=== PATIENT | female | born 1995 | race Caucasian/White ===

== ENCOUNTER 2017-02-09 15:14 | Emergency (ER) | payer BC ==
--- OUTSIDE RECORDS SUMMARY | 2017-02-09 16:38 | XMS REPORT | Continuity of Care Document ---
:1995 Author Organization [facility] ([facility]) Address [address] [place] [address] Phone [phone] Care Team Providers Name Role Phone Moreno Ptots Primary Care Provider [phone] Source Comments This disclosure is being made pursuant to the Care Everywhere program, applicable federal and state laws, and may not contain all informaitonavailable regarding this patient.[facility] ([facility]) Active Allergies and Adverse Reactions Allergen Noted Date Severity Reactions Comments Codeine 06/10/2016 OTHER Poison Carmen Extract 06/10/2016 Angioedema Current Medications Prescription Sig. Disp. Refills Start Date End Date Status cetirizine 10 mg tablet Take 10 mg by Active mouth at bedtime. risperiDONE 0.5 mg Take 0.5 mg by Active tablet mouth at bedtime. acetaminophen 325 mg Take 2 tablets 70 tablet 2 12/28/2016 Active tablet (650 mg total) by mouth every 6 hours. oxyCODONE 5 mg Take 1 tablet (5 40 tablet 0 12/28/2016 Active immediate release mg total) by tablet mouth every 6 hours as needed for Pain. Active Problems Problem Noted Date Sialadenitis 06/12/2016 Sialolithiasis of submandibular gland 06/10/2016 Most Recent Encounters Date Type Specialty Providers Description 12/31/2016 Office Visit Otolaryngology Sami Torrez Dx: Sialolithiasis MD Esteban of submandibular gland (Primary Dx) 12/29/2016 Nurse Triage General Care Jennifer Galvez Chief Comp: IP Inpatient - Adult Nelson dat instructor Follow-up Call 12/28/2016 Pharmacy Visit 12/27/2016 [facility] Sami Torrez Dx: Sialolithiasis - Encounter Inpatient - Adult MD Esteban of submandibular 12/28/2016 gland (Primary Dx) 12/27/2016 Surgery General Surgery Sami Torrez LEFT SIALENDOSCOPY T, MD SUBMANDIBULAR DISSECTION AND EXCISION DUCT DIALATION 12/06/2016 Hospital Anesthesiology Chief Comp: Patient Encounter Reported Reason For Visit 12/06/2016 Office Visit Otolaryngology Sami Torrez Dx: Sialolithiasis MD Esteban of submandibular gland (Primary Dx) 12/06/2016 [facility] Radiology Owen Zamarripa Dx: Sialadenitis Encounter MD Manuel Oconnor Joan E, MD 12/04/2016 Anesthesia Event General Surgery Junie Cheek CRNA Immunizations Name Dates Previously Given Next Due DTP 02/09/1994,1993,1993 DTaP, unspecified 07/22/1997,09/12/1996 Hepatitis B, unspecified 1993,1993,1993 Hib, unspecified 08/05/1994,02/09/1994,1993,1993 MMR 07/22/1997,08/05/1994 Polio, unspecified 07/22/1997,02/09/1994,1993,1993 Varicella 09/12/1996 Social History Tobacco Use Types Packs/Day Years Used Date Light Tobacco Smoker 0.25 Smokeless Tobacco: Never Used Tobacco Cessation:Counseling Given: Yes Comments:occasional cigarette Alcohol Use Drinks/Week oz/Week Comments Yes occasional Last Filed Vital Signs Vital Sign Reading Time Taken Blood Pressure 103/68 12/31/2016 11:13 AM TOOL DESIGNER Pulse 62 12/31/2016 11:13 AM TOOL DESIGNER Temperature 35.9 C (96.6 F) 12/31/2016 11:13 AM TOOL DESIGNER Respiratory Rate 16 12/28/2016 9:40 AM TOOL DESIGNER Height 1.702 m (5' 7.01") 12/31/2016 11:13 AM TOOL DESIGNER Weight 66.5 kg (146 lb 9.7 oz) 12/31/2016 11:13 AM TOOL DESIGNER Body Mass Index 22.96 12/31/2016 11:13 AM TOOL DESIGNER Oxygen Saturation 96% 12/28/2016 7:41 AM TOOL DESIGNER Plan of Care Date Type Specialty Providers Description 03/03/2017 Appointment Otolaryngology Sami Torrez MD Chief Comp: Patient [address] [place] [address] Visit [phone] (Fax) Health Maintenance Due Date Last Done Comments Hepatitis B Vaccine (4 of 4 1993 1993, - 4 Dose Series) 1993, 1993 Varicella Vaccine (2 of 2 - 08/19/1997 09/12/1996 2 Dose Childhood Series) HPV Vaccine (1 of 3 - 2004 Female/Unknown 3 Dose Series) Tdap Vaccine 2004 Cervical Cancer Screening 2011 Lipid Disorder Screening 2011 Td Vaccine 2011 07/22/1997, Additional history exists 09/12/1996, 02/09/1994 Pneumococcal Vaccine (1 of 1 2012 - PPSV23) Influenza Vaccine: Seasonal 06/28/2016 (#1) MMR Vaccine Completed 07/22/1997, 08/05/1994 Procedures from Last 3 Months Procedure Name Priority Date/Time Associated Diagnosis Comments ABSTRACTED BY BILLING Routine 12/29/2016 5:43 Sialolithiasis of Results for this STAFF PM TOOL DESIGNER submandibular gland procedure are in the results section. LEFT SIALENDOSCOPY 12/27/2016 10:13 Sialolithiasis of SUBMANDIBULAR AM TOOL DESIGNER submandibular gland DISSECTION AND EXCISION DUCT DIALATION Case Notes sialendoscopy with use of laser and sialo balloon with possible submandibular gland removal Results from Last 3 Months [facility] OR CASE (12/29/2016 5:43 PM) Narrative Sami Torrez MD 12/29/20165:43 PM Post-Op Procedure Note Operation/Procedure: Procedure: Left submandibular sialendoscopy with ductal dilation in effort (unsuccessful) to access the secondary branching system where stone present Left submandibular gland resection General Information: Date: 12/27/16 Time: 1013 Location: MAIN OR OR Room: MAIN OR Service: Otolaryngology Log ID: [id number] Surgeon: Surgeon(s) and Role: * Sami Torrez MD - Primary * Kaushal Cunningham MD - Resident - Assisting Staff Information: Scrub Nurse: Nancy Osuna, SANDRA; Coco Alcantara RN Circulating Nurse: Elisabet Weaver RN; Vadim Wiggins RN; Fouzia Conde RN Anesthesia: General Findings: Duct readily cannulated but stone located proximal to hilum (in secondary branching), able to visualize partly but unable to access despite efforts to dilate Left open submandibular gland resection performed Blood Loss: Minimal Tourniquet Time: * No tourniquets in log * Implants: * No implants in log * Specimens: ID Type Source Tests Collected by Time Destination 1 : left submandibular gland Surgical Pathology Surgical Pathology Specimen SURGICAL PATHOLOGY EXAM Sami Torrez MD 12/27/2016 1233 Complications: None, patient tolerated the procedure well Condition: Stable Operative Report Completion Indications: 21 year-old female with a left submandibular duct stone Procedure Details: Informed consent was reviewed with the patient, and the patient was brought back to the main operating room and laid supine on the operating table. A preinduction time-out was completed. General anesthesia was induced and the patient was orally intubated without difficulty. The bed was rotated 180 degrees from Anesthesia. A multidisciplinary time-out was performed. A throat pack was placed and the oral cavity was prepped with dilute Betadine and the face and neck and endotracheal tube prepped with betadine and draped in routine sterile fashion. The operating microscope was used to examine the left submandibular duct.A 0.015 guidewire was inserted atraumatically into the papilla and advanced.Marchal dilators were advanced over the guidewire to provide additional dilation. The KolCAPPTURE 5-Danish salivary access dilator was unable to be placed, but the diagnostic 0.8 sialoendoscope was inserted without difficulty.The duct was examined and the stone was identified at the hilum although only a limited view was able to be obtained.A 3 mm Portr sialoballoon was then inserted into the papilla and inflated to 18 atmospheres to dilate the papilla. This allowed for concurrent placement of the sialoendoscope and sialoballoon into the submandibular duct.The duct was dilated multiple times with the sialoballoon inflated to 18 atmospheres, but an improved view of the stone that would allow endoscopic removal was unable to be obtained.As per the pre-operative discussion with the patient, the decision was made to proceed with open submandibular gland resection. An incision was planned approximately 2 fingerbreadths below the angle of the left jaw and then infiltrated with 2.5 cc of 1:100,000 epinephrine. Using a #15 blade, an incision was made down though the platysma. The Yao Diallo facial stimulator was used to confirm the superior elevation of the marginal mandibular branch of the facial nerve. Using blunt dissection with hemostats, the inferior border of the left submandibular gland was identified.Dissection was then continued superiorly with care to remain directly on the gland.The facial vessels lateral to the gland were identified and preserved but limiting vessel ligation to the branches of the facial artery coursing into the submandibular gland.The mylohyoid muscle and retracted this cranially to allow for visualization of the anterior aspect of the gland, as well as the lingual nerve and submandibular duct. Hemoclips were placed on the submandibular ganglion and on the submandibular duct immediately below the point were it crossed with the lingual nerve.The ganglion and submandibular duct were then resected immediately below the hemoclips and the gland was removed.The stone was confirmed to be present in the specimen which was then passed off for pathology. The wound bed was irrigated with sterile saline. Hemostasis was achieved with bipolar cautery.A quarter-inch [place] drain was placed into the wound and secured with a 5-0 nylon at the posterior aspect of the incision. The platysma was closed with 3-0 Vicryl interrupted sutures. Approximation of the deep dermis was performed with interrupted 3-0 Vicryl.The skin edges were approximated with a running 5-0 nylon suture. Bacitracin was applied, followed by fluffs and burn netting.The oral cavity was suctioned from final irrigations and debris. The throat pack was removed. The patient was turned back to Anesthesia for emergence and extubation and escorted to the PACU in stable condition. Attending Attestation: Op Note Preop Dx: Left submandibular sialolithiasis and sialadenitis Postop D: Same Procedure: Left submandibular sialendoscopy with ductal dilation in effort (unsuccessful) to access the secondary branching system where stone present Left submandibular gland resection Surgeon: Lore Asst: Marisa Anesthesia: General OETT (glide scope) Findings: duct readily cannulated but stone located proximal to hilum (in secondary branching) able to visualize partly but unable to access despite efforts to dilate (3 mm COOK sialoballoon) back to stone Leading to gland removal with stone indentified intraglandular Dr. Torrez was present for and participated in all the above. [facility] MD Dr. Lore Chu was present for and participated in all the above. [facility] SURGICAL PATHOLOGY EXAM (12/27/2016 12:33 PM) Component Value Range Case Report Surgical Pathology Case: [id number] Authorizing Provider:Sami Torrez MD Collected: 12/27/2016 12:33 PM Ordering Location: Main OR Received:12/27/2016 12:56 PM Pathologist: Rob Irving MD Specimen:Salivary gland, left submandibular gland Diagnosis Submandibular gland, left, excision: Benign salivary gland tissue with no diagnostic abnormality. I have personally reviewed this case and edited the report as necessary. Gross Description Received fresh in a container labeled with Gabriela Yulia, hospital number, and "left submandibular gland" are two santiago-pink, lobular, ragged, partially encapsuled soft tissue fragments grossly consist ent with salivary gland up to 1.2 and 3.9 cm in greatest dimension.Cut surfaces are santiago-pink, solid, glistening, homogenous and lobular without discrete lesions, masses, or stones.A dilated du ct is not appreciated.Galvanizing Pot Runner sections are submitted in A1. LRL/rls Microscopic Description Microscopic examination performed and supports the diagnosis. Performed by: Jose Zuniga MD, R1 Specimen Surgical Pathology - Salivary gland URINE , POINT OF CARE (12/27/2016) Component Value Range POC URINE NegativeComment:HCG:LOT 99860 POC FINANCIAL INSTITUTION PRESIDENT Satisfactory FL SIALOGRAM COMPLETE (12/06/2016 10:52 AM) Impressions Impression: 1. Approximately 4 mm sialolith demonstrated at the hilum of the left submandibular gland. 2. No visualized stricture or sialosis. Narrative Procedure: FL SIALOGRAM COMPLETE Indication: sialogram - left submandibular duct cannulation, dilation radio contrast insufflation consent completed in clinic by and scanned into medical record Technique: Dr. Torrez was present and performed cannulation of the left submandibular duct opening. After successful cannulation was achieved, a 10 cc syringe with Isovue 370 contrast agent was connected to the cannula and instilled into the duct under fluoroscopic monitoring. A total of 2.5 cc of contrast agent was utilized. After adequate duct opacification was achieved, AP and lateral spot films were obtained. The cannula was then removed and duct was allowed to empty following oral administration lemon juice to patient. Post void lateral image was then obtained. Fluoro Time: 34 seconds Radiation Dose: 180 cGy-cm2 Findings: Adequate opacification of the left submandibular duct and branches is achieved. An approximately 4 mm ovoid density was identified near the hilum of the left submandibular gland, best visualized on the lateral radiograph. An additional 1.4 mm rounded filling defect was seen nondependently in the midportion of the duct, however, this is thought to reflect a small air bubble. No stricture, sialectasis, fistula, or extravasation is identified. There is a normal pattern of intraglandular arborization. Post void film shows adequate emptying with no contrast remaining within the gland or duct system. Procedure Note Abhijit, Incoming Imaging Results - Tue Dec 07, 2016 3:41 PM TOOL DESIGNER Procedure: FL SIALOGRAM COMPLETE Indication: sialogram - left submandibular duct cannulation, dilation radio contrast insufflation consent completed in clinic by and scanned into medical record Technique: Dr. Torrez was present and performed cannulation of the left submandibular duct opening. After successful cannulation was achieved, a 10 cc syringe with Isovue 370 contrast agent was connected to the cannula and instilled into the duct under fluoroscopic monitoring. A total of 2.5 cc of contrast agent was utilized. After adequate duct opacification was achieved, AP and lateral spot films were obtained. The cannula was then removed and duct was allowed to empty following oral administration lemon juice to patient. Post void lateral image was then obtained. Fluoro Time: 34 seconds Radiation Dose: 180 cGy-cm2 Findings: Adequate opacification of the left submandibular duct and branches is achieved. An approximately 4 mm ovoid density was identified near the hilum of the left submandibular gland, best visualized on the lateral radiograph. An additional 1.4 mm rounded filling defect was seen nondependently in the midportion of the duct, however, this is thought to reflect a small air bubble. No stricture, sialectasis, fistula, or extravasation is identified. There is a normal pattern of intraglandular arborization. Post void film shows adequate emptying with no contrast remaining within the gland or duct system. IMPRESSION Impression: 1. Approximately 4 mm sialolith demonstrated at the hilum of the left submandibular gland. 2. No visualized stricture or sialosis.
[2017-02-09 17:00] VITALS: BP 125/72
--- NOTE | 2017-02-09 17:07 | ERNOTE ---
Medical Problem HPI - Narrative Date of Service: 02/09/17 - General Chief Complaint: Nausea/Vomiting Time Seen by Provider: 02/09/17 16:21 Source: patient, RN notes reviewed Exam Limitations: no limitations - Immun/Allergies/Home Medications Immunizations: IMMUNIZATION HX Immunizations Up to Date Yes History of Influenza Vaccine Yes Hx Pneumococcal Vaccination No Allergies/Adverse Reactions: Allergies codeine Allergy (Severe, Verified 05/01/16 11:45) Hives Home Medications: HOME MEDICATIONS Cetirizine HCl [Zyrtec] 10 mg PO DAILY 02/09/17 [Last Taken Unknown] Risperidone [Risperdal] 1 mg PO DAILY 02/09/17 [Last Taken Unknown] - History of Present History Narrative: 21 y/o female ambulatory to the ED for nausea, vomiting and diarrhea that began 2 days ago. The vomiting has subsided today, but she has still been having diarrhea. Date (Duration): 02/07/17 Timing: other - improving Review of Systems - Review of Systems Constitutional: Present: fatigue, malaise. Absent: fever, chills EYE: Present: no symptoms reported ENT: Present: no symptoms reported Respiratory: Absent: shortness of breath, cough Cardiology: Absent: chest pain, syncope Gastrointestinal/Abdominal: Present: See HPI Genitourinary: Present: decreased urinary output. Absent: dysuria, hematuria Musculoskeletal: Absent: back pain, neck pain Skin: Absent: rash, lesions Neurological: Absent: headache, dizziness/light-headedness Endocrine: Present: no symptoms reported Hematologic/Lymphatic: Present: no symptoms reported Psych: Present: no symptoms reported - Patient's Past Medical History Patient History - Medical: No pertinent hx Patient History - Cardiac/Respiratory: No pertinent hx Patient History - Cancer: No Hx of Cancer Patient History - Surgical Procedures: Pneumothorax, T & A, Other Patient History - Other: None LMP (females 10-50): 3 weeks - Family History Mother Family History - Medical: No pertinent hx Family History - Cardiac/Respiratory: No pertinent hx Father Family History - Medical: No pertinent hx Family History - Cardiac/Respiratory: No pertinent hx - Social History Living Situations: home Abuse History: No History of abuse Psych History: Hx of Bipolar Disorder, Current tx/ever been on anti-depressants or anti-anxiety meds Smoking Status: Current some day smoker Have you smoked in the past 12 months: Yes Do you dip or chew tobacco: No Alcohol Use: occasionally Drug Use: none - Immunizations Immunizations Up to Date: Yes Hx Pneumococcal Vaccination: No History of Influenza Vaccine: Yes Physical Exam - Physical Exam General Appearance: Present: wd/wn, alert, no apparent distress Eye Exam: Normal inspection: bilateral Neck: Present: normal inspection, nontender, supple Respiratory: Present: no respiratory distress, normal breath sounds, no accessory muscle use, lungs clear Cardiovascular/Chest: Present: regular rate, rhythm, no murmur, normal peripheral pulses Gastrointestinal/Abdominal: Present: normal bowel sounds, nontender, nondistended, soft, no organomegaly Back Exam: Present: normal inspection, no CVA tenderness Extremity Exam: Present: normal inspection, no edema Neurological Exam: Present: alert, oriented, normal mood/affect, no motor/ sensory deficits Skin Exam: Present: normal color, warm/dry ED Progress - Vital Signs Patient's Vital Signs:: I have reviewed the patient's vital signs. Vital Signs: Vital Signs 02/09/17 02/09/17 02/09/17 15:46 16:03 16:58 Temperature 36.7 C 36.9 C Pulse Rate 71 77 69 Respiratory 18 14 14 Rate Blood Pressure 111/74 129/76 125/72 O2 Sat by Pulse 99 97 98 Oximetry - Progress/Reassessment Chief Complaint: Nausea/Vomiting Progress:: Improved Plan - Plan Plan: Tolerating po fluids in department without v/d - discussed home treatment and f/ u for worsening symptoms. Departure - Departure Clinical Impression: Viral gastroenteritis Disposition: Home self-care Condition: Good Instructions: Viral Gastroenteritis, Adult, [id number], Form - Excuse from Work, School, or Physical Activity Additional Instructions: Increase fluid intake as discussed Return for worsening symptoms Referrals: Moreno Potts MD [Primary Care Provider] -
== END 2017-02-09 17:22 | disposition home or self-care (01) ==
LOC: ER 15:14
DX: A08.4 Viral intestinal infection, unspecified (principal); F31.70 Bipolar disorder, currently in remission, most recent episode unspecified

== ENCOUNTER 2018-01-13 10:27 | Emergency (ER) | payer BC ==
--- NOTE | 2018-01-13 10:49 | ERNOTE ---
Chest Pain/Cardiac HPI Date of Service: 01/13/18 Chief Complaint: Chest Pain Time Seen by Provider: 01/13/18 10:46 Source: patient, RN notes reviewed Exam Limitations: no limitations Immunizations: IMMUNIZATION HX Immunizations Up to Date Yes History of Influenza Vaccine No Hx Pneumococcal Vaccination No Allergies/Adverse Reactions: Allergies codeine Allergy (Severe, Verified 01/13/18 10:44) Hives Home Medications: HOME MEDICATIONS risperiDONE [Risperdal] 1 mg PO HS 02/09/17 [Last Taken Unknown] Alprazolam [Xanax] 0.25 mg PO TID PRN 01/13/18 [Last Taken Unknown] Narrative: Yulia is a 22 year old female brought to the ED by her mother for left sided chest pain that began last night. She also reports shortness of breath, but reports the pain is making her "freak out." She took a Xanax [employer] with no improvement in the pain. She took ibuprofen last night without any change. She denies needing anything for pain currently. The pain has been persistent since it began. Date (Duration): 01/12/18 Timing: constant Severity/Quality: moderate, dull Location: left chest Chest Pain Radiation: no radiation Activities at Onset: none Modifying Factors - Improves: Present: nothing Modifying Factors - Worsens: Present: breathing, other - palpation Nitro Today/Relief: no nitro taken today Aspirin Treatment Today: no aspirin today Prior Chest Pain/Cardiac Workup: Denies: prior chest pain Review of Systems - Review of Systems Constitutional: Absent: recent illness, fever, malaise EYE: Absent: eye pain, eye discharge ENT: Absent: ear pain, nose congestion, sore throat Respiratory: Present: shortness of breath. Absent: cough, wheezing Cardiology: Present: chest pain. Absent: palpitations, syncope Gastrointestinal/Abdominal: Absent: nausea, abdominal pain Genitourinary: Absent: dysuria, hematuria Musculoskeletal: Absent: muscle pain, joint pain Skin: Absent: rash, lesions, lumps Neurological: Absent: headache, dizziness/light-headedness Endocrine: Present: no symptoms reported Hematologic/Lymphatic: Absent: easy bruising, easy bleeding Psych: Present: emotional problems - Patient's Past Medical History Patient History - Medical: Anxiety, Depression Patient History - Cardiac/Respiratory: No pertinent hx Patient History - Cancer: No Hx of Cancer Patient History - Surgical Procedures: Pneumothorax, T & A, Other Patient History - Other: None LMP (females 10-50): 1 month - Family History Mother Family History - Medical: No pertinent hx Family History - Cardiac/Respiratory: No pertinent hx Father Family History - Medical: No pertinent hx Family History - Cardiac/Respiratory: No pertinent hx - Social History Living Situations: home Abuse History: No History of abuse Psych History: Hx of Bipolar Disorder, Current tx/ever been on anti-depressants or anti-anxiety meds Smoking Status: Current every day smoker Cigarettes Packs Per Day: 0.5 Have you smoked in the past 12 months: Yes Alcohol Use: occasionally Drug Use: none - Immunizations Immunizations Up to Date: Yes Hx Pneumococcal Vaccination: No History of Influenza Vaccine: No Physical Exam - Physical Exam General Appearance: Present: alert, no apparent distress, thin Head Exam: Present: normal inspection Eye Exam: Normal inspection: bilateral Neck: Present: normal inspection, nontender, supple, full range of motion Respiratory: Present: no respiratory distress, normal breath sounds, no accessory muscle use, lungs clear, chest tenderness - Left anterior chest Cardiovascular/Chest: Present: regular rate, rhythm, no murmur, normal peripheral pulses Gastrointestinal/Abdominal: Present: normal bowel sounds, nontender, nondistended, soft Extremity Exam: Present: normal inspection, normal range of motion, no edema Neurological Exam: Present: alert, oriented, no motor/sensory deficits, other - Flat affect, depressed appearing. Absent: normal mood/affect Skin Exam: Present: normal color, warm/dry ED Progress - Results and Orders Patient's Lab Results:: I have reviewed the patient's lab results. - Vital Signs Patient's Vital Signs:: I have reviewed the patient's vital signs. Vital Signs: Vital Signs 01/13/18 10:37 Temperature 36.7 C Pulse Rate 76 Respiratory 16 Rate Blood Pressure 103/69 O2 Sat by Pulse 100 Oximetry - EKG EKG: NSR - with sinus arrhythmia EKG read: Reviewed by me - X-Ray X-Ray #1 X-Ray: chest Interpretation: Reviewed by me X-ray Comments: No acute cardiopulmonary findings - Progress/Reassessment Chief Complaint: Chest Pain Progress:: Unchanged Progress Note-Subjective: 01/13/18 12:51 labs/xray/EKG are without acute findings aside from a possible UTI, the patient is asymptomatic so I will defer treatment for now pending culture results, pain is likely musculoskeletal, discussed treatment with NSAIDS, heat - patient in agreement with plan Departure Clinical Impression: Chest wall pain - Departure Disposition: Home self-care Condition: Good Instructions: Chest Wall Pain Additional Instructions: OK to take ibuprofen for pain - take with food You will be contacted if your urine grows bacteria and needs treatment Follow up as needed for new/worsening symptoms Referrals: Moreno Potts MD [Primary Care Provider] -
[2018-01-13 11:06] LABS: Hematocrit 42.3 % (37.0-47.0); Hemoglobin 14.4 gm/dL (12.5-16.0); Mean Cell Volume 91.8 fl (78-100); Mean Corpuscular Hemoglobin 31.2 pg (27-31); Mean Platelet Volume 9.8 fl (6.0-9.5); Neutrophil # 3.8 K/mm3 (1.3-6.0); Neutrophil % 64.8 % (42-75.0); Platelet Count 218 K/mm3 (150-450); Red Blood Count 4.61 M/mm3 (4.2-5.4); Red Cell Distribution Width 12.1 % (11.5-14.0); White Blood Count 5.8 K/mm3 (4.0-10.5)
[2018-01-13 11:25] LABS: ALT 21 U/L (19-67); AST 15 U/L (0-48); Albumin * 4.2 gm/dl (3.4-5.0); Alkaline Phosphatase * 63 U/L (50-170); Anion Gap 12.8 mmol/L (6.8-13.8); BUN/Creatinine Ratio 14.9 (9.0-21.6); Bilirubin, Total 0.3 mg/dL (0.0-1.1); Blood Urea Nitrogen 10 mg/dL (3-23); Ca. Corrected For Albumin 8.5 mg/dL (8.4-10.2); Carbon Dioxide 26.3 mmol/L (24-32.6); Chloride 101 mmol/L (97-106); Glucose * 95 mg/dL (70-110); Potassium 4.1 mmol/L (3.4-4.6); Sodium 136 mmol/L (132-142); Total Protein 7.2 gm/dL (6.2-8.2); Troponin I Less than 0.017 ng/ml (0.00-0.10)
[2018-01-13 11:36] LABS: Urine Bilirubin Negative (NEGATIVE); Urine Blood Negative /ul (NEGATIVE); Urine Ketone Negative (NEGATIVE); Urine Nitrite Negative (NEGATIVE); Urine Protein Negative (NEGATIVE); Urine Specific Gravity 1.015 SP.GR. (1.005-1.010); Urine Urobilinogen Normal (NORMAL)
[2018-01-13 11:49] LABS: Urine Appearance Slightly Cloudy; Urine Bacteria 2+; Urine Color Yellow; Urine RBC 0-5 /hpf (0-5)
[2018-01-13 11:50] LABS: Cocaine Ur Negative (NEGATIVE); Urine Barbiturate Negative (NEGATIVE); Urine Opiates Negative (NEGATIVE); Urine PCP Negative (NEGATIVE); Urine THC Negative (NEGATIVE)
[2018-01-13 11:54] LABS: Urine Benzodiazepines Positive (NEGATIVE)
[2018-01-13 12:15] VITALS: BP 101/68
== END 2018-01-13 13:03 | disposition home or self-care (01) ==
LOC: ER 10:27
DX: F41.9 Anxiety disorder, unspecified; R07.89 Other chest pain; F32.9 Major depressive disorder, single episode, unspecified; F17.210 Nicotine dependence, cigarettes, uncomplicated